=== PATIENT | female | born 1970 | race American Indian/Alaskan Native ===

== ENCOUNTER 2018-04-16 10:17 | Outpatient (CLI) | payer OTHER ==
--- NOTE | 2018-04-16 15:12 | Mammography Report ---
BILATERAL DIGITAL SCREENING MAMMOGRAM WITH CAD:04/16/18 10:30:00 CLINICAL: Baseline screening.Her last mammogram was in 1995 FINDINGS: The breasts are mostly fatty with a few bilateral scattered fibroglandular densities. A right oval partially circumscribed 2 cm focal asymmetry requires additional imaging. No architectural distortion or suspicious calcifications. The left breast is negative. IMPRESSION: Right asymmetry requiring further workup. BI-RADS CATEGORY: 0 -- Needs Additional Imaging RECOMMENDATION: Recall for right spot compression views and right breast breast ultrasound. ACR BI-RADS MAMMOGRAPHIC CODES: 0 = Needs additional imaging evaluation; 1 = Negative; 2 = Benign; 3 = Probably benign; 4 = Suspicious; 5 = Malignant; 6 = Known biopsy-proven malignancy COMMENT: 1. Dense breast tissue, i.e., adenosis, fibrocystic changes, etc., may obscure an underlying neoplasm. 2. Approximately 10% of cancers are not detected with mammography. 3. A negative mammography report should not delay biopsy if a clinically suspicious mass is present.
== END 2018-04-16 10:18 | disposition home or self-care (01) ==
LOC: SPVWC 10:17
PROVIDERS: ATTEND Family Medicine
DX: Z12.31 Encounter for screening mammogram for malignant neoplasm of breast (principal)
CPT/HCPCS: 77067

== ENCOUNTER 2018-05-05 09:22 | Outpatient (CLI) | payer OTHER ==
--- NOTE | 2018-05-05 11:26 | Ultrasound Report ---
RIGHT DIGITAL DIAGNOSTIC MAMMOGRAM and RIGHT BREAST ULTRASOUND: 05/05/18 09:22:00 CLINICAL: Recalled for asymmetry. COMPARISON:04/16/18 screening FINDINGS: Spot CC and MLO views were performed and demonstrated a persistent asymmetry in the inner breast. Ultrasound of the inner right breast was performed and demonstrated a benign oval cyst with a smooth thin wall at 1:30 o'clock 6 cm from the nipple. It measures 1.2 x 0.5 x 1.2 cm and correlates with the mammographic density. IMPRESSION: A benign cyst at 1:30 o'clock. BI-RADS CATEGORY: 2 - - Benign RECOMMENDATION: Routine mammographic screening in one year. ACR BI-RADS MAMMOGRAPHIC CODES: 0 = Needs additional imaging evaluation; 1 = Negative; 2 = Benign; 3 = Probably benign; 4 = Suspicious; 5 = Malignant; 6 = Known biopsy-proven malignancy COMMENT: 1. Dense breast tissue, i.e., adenosis, fibrocystic changes, etc., may obscure an underlying neoplasm. 2. Approximately 10% of cancers are not detected with mammography. 3. A negative mammography report should not delay biopsy if a clinically suspicious mass is present. COMMENT: Patient follow-up letters are generated via our [employer] application.
== END 2018-05-05 09:23 | disposition home or self-care (01) ==
LOC: SPVWC 09:22
PROVIDERS: ATTEND Family Medicine
DX: N60.01 Solitary cyst of right breast (principal); N64.89 Other specified disorders of breast

== ENCOUNTER 2019-07-13 09:42 | Outpatient (CLI) | payer OTHER ==
--- NOTE | 2019-07-14 10:00 | Mammography Report ---
DIGITAL SCREENING MAMMOGRAM WITH CAD, 07/13/2019 INDICATION: Routine screening mammography. TECHNIQUE: Digital bilateral 2D mammography was obtained in the craniocaudal and mediolateral obliq ue projections. This examination was interpreted with the benefit of Computer-Aided Detection analysi s. COMPARISON: 04/16/2018 FINDINGS: Breast Density: There are scattered areas of fibroglandular density. There is no evidence of dominant mass, suspicious calcifications or architectural distortion in eithe r breast. The previously described right inner cyst has resolved. IMPRESSION: No mammographic evidence of malignancy. Follow up recommendation: Routine yearly BI-RADS Category 1: Negative. A "normal" or negative report should not discourage follow up or biopsy of a clinically significant f inding. A written summary of these findings will be mailed to the patient. The patient will be entered into a mammography reporting system which will generate a reminder letter for the patient's next appointmen t at the appropriate interval. The [employer] recommends yearly mammograms starting at age 40 and continuing as l concetta as a woman is in good health. Breast MRI is recommended for women with an approximate 20-25% or greater lifetime risk of breast cancer, including women with a strong family history of breast or ova francisca cancer or who have been treated for Hodgkin's disease. Signer Name: Leo Wilson MD Signed: 07/14/2019 9:55 AM Workstation Name: [id number]
== END 2019-07-13 09:43 | disposition home or self-care (01) ==
LOC: SPVWC 09:42
PROVIDERS: ATTEND Family Medicine
DX: Z12.31 Encounter for screening mammogram for malignant neoplasm of breast (principal)
CPT/HCPCS: 77067